=== PATIENT | female | born 1985 | race Caucasian/White ===

== ENCOUNTER 2017-07-14 11:05 | Emergency (ER) | payer MEDICAID, OTHER ==
[2017-07-14 11:23] VITALS: O2SAT 99
--- NOTE | 2017-07-14 11:44 | ERPHSYRPT ---
- History of Present Illness Time Seen by Provider: 07/14/17 11:29 Source: patient Exam Limitations: no limitations Patient Subjective Stated Complaint: bilaetral knee pain Triage Nursing Assessment: pt to er c/o bilateral knee pain for the past year, worse over the last week, states she works nights and the pain is at it's highest when she is working, denies injury, denies medical history related to knees Physician History: The patient is a 32-year-old female who comes in complaining of knee pain in both the right and left knees for about one year. There is been no trauma. She works nights and her knees hurt more when she is up at night. The right knee has been hurting more over the past week. She has tried Advil without relief. The knees are not swollen. The knees do not hurt when she bends them. The patient states that she just got insurance and could not wait any longer to see a primary doctor. Her past medical history is unremarkable. Method of Injury: unknown (none) Occurred: other (1 year) Quality: constant, aching Severity of Pain-Max: moderate Severity of Pain-Current: moderate Lower Extremities Pain: knee: bilateral Modifying Factors: Improves With: nothing Associated Symptoms: none Allergies/Adverse Reactions: No Known Drug Allergies Allergy (Verified 07/14/17 11:16) Hx Tetanus, Diphtheria Vaccination/Date Given: No Hx Influenza Vaccination/Date Given: No Hx Pneumococcal Vaccination/Date Given: No Immunizations Up to Date: No - Review of Systems Constitutional: No Fever, No Chills Eyes: No Symptoms Ears, Nose, & Throat: No Symptoms Respiratory: No Cough, No Dyspnea Cardiac: No Chest Pain, No Edema, No Syncope Abdominal/Gastrointestinal: No Abdominal Pain, No Nausea, No Vomiting, No Diarrhea Genitourinary Symptoms: No Dysuria Musculoskeletal: Joint Pain Skin: No Rash Neurological: No Dizziness, No Focal Weakness, No Sensory Changes Psychological: No Symptoms Endocrine: No Symptoms Hematologic/Lymphatic: No Symptoms Immunological/Allergic: No Symptoms All Other Systems: Reviewed and Negative - Past Medical History Pertinent Past Medical History: No Neurological History: No Pertinent History ENT History: No Pertinent History Cardiac History: No Pertinent History Respiratory History: No Pertinent History Endocrine Medical History: No Pertinent History Musculoskeletal History: No Pertinent History GI Medical History: No Pertinent History History: No Pertinent History Psycho-Social History: No Pertinent History Female Reproductive Disorders: No Pertinent History - Past Surgical History Past Surgical History: No Neuro Surgical History: No Pertinent History Cardiac: No Pertinent History Respiratory: No Pertinent History Gastrointestinal: No Pertinent History Genitourinary: No Pertinent History Musculoskeletal: No Pertinent History Female Surgical History: No Pertinent History - Social History Smoking Status: Current every day smoker Exposure to second hand smoke: Yes Drug Use: none Patient Lives Alone: No - Female History Hx Now: No - Nursing Vital Signs Nursing Vital Signs: Initial Vital Signs Temperature 98.2 F 07/14/17 11:18 Blood Pressure 169/95 07/14/17 11:18 O2 Sat by Pulse Oximetry 99 07/14/17 11:18 Pain Scale Pain Intensity 7 - Physical Exam General Appearance: alert Eyes, Ears, Nose, Throat Exam: moist mucous membranes Neck Exam: non-tender, supple Cardiovascular/Respiratory Exam: chest non-tender, normal breath sounds, regular rate/rhythm, no respiratory distress Gastrointestinal/Abdominal Exam: non-tender, guarding Back Exam: normal inspection, No vertebral tenderness Hips Exam: bilateral: non-tender Legs Exam: bilateral leg: non-tender Knees Exam: bilateral knee: non-tender, normal inspection, normal range of motion, no evidence of injury Ankle Exam: bilateral ankle: non-tender Foot Exam: bilateral foot: non-tender Neuro/Tendon Exam: normal sensation, normal motor functions Mental Status Exam: alert, oriented x 3, cooperative Skin Exam: normal color, warm, dry SpO2 Interpretation: normal SpO2: 99 Oxygen Delivery: Room Air - Radiology Exams Left Knee X-ray Interpretation: Reviewed by me, Teleradiologist Report, Negative (per Dr Latif) Right Knee X-ray Interpretation: Reviewed by me, Teleradiologist Report, Negative (per Dr Latif) Ordered Tests: Active Orders 24 hr Category Date Time Status KNEE (3 VIEWS) Stat Exams 07/14/17 11:48 Completed KNEE (3 VIEWS) Stat Exams 07/14/17 11:49 Completed Medication Summary Discontinued Medications Generic Name Dose Route Start Last Admin Trade Name Freq PRN Reason Stop Dose Admin Ketorolac Tromethamine 60 mg 07/14/17 12:41 Toradol 30 Mg Injection IM 07/14/17 12:42 STAT ONE Ketorolac Tromethamine Confirm 07/14/17 12:51 Toradol 30 Mg Injection Administered 07/14/17 12:52 Dose 60 mg .ROUTE .STK-MED ONE - Progress Progress: unchanged Counseled pt/family regarding: rad results - Departure Time of Disposition: 13:01 Departure Disposition: Home Clinical Impression: Knee pain, bilateral Condition: Stable Critical Care Time: No Referrals: DOCTOR,NO FAMILY [Primary Care Provider] - Additional Instructions: You have pain in both knees. The x-rays of your knees were normal. You were given Toradol 60 mg by IM in the ER. Take naproxen 500 mg 2 times a day for one week and then take naproxen 500 mg every 12 hours as needed. Take Tylenol 1000 mg every 6-8 hours for one week and then take Tylenol 1000 mg every 6-8 hours as needed. Follow-up with the primary care doctor within a week. Prescriptions: Naproxen 500 mg PO BID PRN #30 tablet.
--- NOTE | 2017-07-14 12:30 | XRAY ---
Indication: Knee pain. No known injury. Comparison: None 3 views of the left knee obtained. No bony, articular, or soft tissue abnormalities.
--- NOTE | 2017-07-14 12:30 | XRAY ---
Indication: Knee pain. No known injury. Comparison: None 3 views of the right knee obtained. No bony, articular, or soft tissue abnormalities.
[2017-07-14] MEDS ORDERED: TORAdol 30 mg Injection IM ONE (12:41)
[2017-07-14] MEDS ORDERED: TORAdol 30 mg Injection ONE (12:51)
[2017-07-14 13:10] VITALS: BP 168/86; PULSE 99
== END 2017-07-14 13:17 | disposition home or self-care (01) ==
LOC: ED 11:05
DX: M25.562 Pain in left knee (principal); M25.561 Pain in right knee
CPT/HCPCS: 73562; 96372; 99283; 99284; J1885